=== PATIENT | male | born 1975 | race Caucasian/White ===

== ENCOUNTER 2021-02-14 18:07 | Emergency (ER) | payer SELFPAY ==
[2021-02-14 18:34] VITALS: BP 141/96; PULSE 81; RESP 14; TEMP 36.8; O2SAT 100
--- NOTE | 2021-02-14 18:34 | ED.URI ---
HPI - URI/Sore Throat General Chief Complaint: Upper Respiratory Infection Stated Complaint: asthma Time Seen by Provider: 02/14/21 18:34 Source: patient and RN notes reviewed History of Present Illness HPI Narrative: Patient is a 45-year-old male who presents the urgent care with complaints of mild asthma exacerbation. Patient currently denies of any shortness of breath and states that he has been holding back his cough . Patient states that he currently does not have a doctor and needs a refill of his albuterol inhaler. States that the symptoms are consistent with his chronic asthma . Patient does not use any daily antihistamines or other medications for his asthma. No other acute complaints. No acute distress noted. Patient aware of the plan of care. Some parts of this dictation were generated by voice recognition software and may contain typographical and/or grammatical inaccuracies. Related Data Home Medications Medication Instructions Recorded Confirmed albuterol sulfate 2 puff INHALATION QID PRN 02/14/21 02/14/21 Allergies Allergy/AdvReac Type Severity Reaction Status Date / Time No Known Allergies Allergy Unknown Verified 02/14/21 18:45 Review of Systems Review of Systems: Narrative: CONSTITUTIONAL: Denies fever, chills, or sweats. EYES: Denies visual changes, redness, or discharge. ENT: Denies rhinorrhea, congestion, sore throat, or otalgia. CARDIOVASCULAR: Denies chest pain, palpitations, or edema. RESPIRATORY: Reports of holding back a cough and mild intermittent asthma issues GASTROINTESTINAL: Denies abdominal pain, nausea, vomiting, or diarrhea. GENITOURINARY: Denies dysuria or hematuria. SKIN: Denies rash or itching. MUSCULOSKELETAL: Denies back pain, joint pain, or myalgia. NEUROLOGIC: Denies headache, numbness, or weakness. All other systems reviewed are negative, except as documented in HPI. PMFSH Comments At the time of my signature, I reviewed and agree with the nursing past medical, surgical, social, and family history. There is no relevant family history pertinent to the patient complaint. Exam Narrative: Exam Narrative: GENERAL: This is a well-nourished, well-developed patient, in no apparent distress. HEAD: normocephalic, atraumatic. EYES: PERRL. Sclera clear/white. Vision is grossly intact. EARS: External ears normalt. NOSE: External nose normal with no obvious nasal discharge, nares without redness, no rhinorrhea. THROAT: Mucous membranes moist NECK: Neck supple CARDIOVASCULAR: Regular rate and rhythm without murmurs, gallops, or rubs. RESPIRATORY: Clear to auscultation. Breath sounds equal bilaterally. No wheezes, rales, or rhonchi. SKIN: warm, intact with no suspicious lesions or rash, good texture and turgor. NEURO: awake, alert, and oriented to person, place and time. There were no obvious focal neurologic abnormalities. EXTREMITIES: No clubbing, cyanosis, or edema. Course Vital Signs Vital signs: Vital Signs Temperature 98.3 F 02/14/21 18:34 Pulse Rate 81 02/14/21 18:34 Respiratory Rate 14 02/14/21 18:34 Blood Pressure 141/96 H 02/14/21 18:34 Pulse Oximetry 100 02/14/21 18:34 Temperature 98.3 F 02/14/21 18:34 Pulse Rate 81 02/14/21 18:34 Respiratory Rate 14 02/14/21 18:34 Blood Pressure 141/96 H 02/14/21 18:34 Pulse Oximetry 100 02/14/21 18:34 Reviewed-patient is informed that they may have pre-hypertension or hypertension based on a blood pressure reading in the department. I recommend the patient call the primary care provider listed on their discharge instructions or a physician of their choice this week to arrange follow-up for further evaluation of possible pre-hypertension or hypertension. MDM - URI/Sore Throat MDM Narrative Medical decision making narrative: Advised the patient to use the inhaler as needed. Use the daily antihistamine as prescribed. It is important that you obtain a primary doctor and insurance in order to obta
== END 2021-02-14 19:00 | disposition home or self-care (01) ==
PROVIDERS: Emergency Provider Nurse Practitioner Family
DX: J45.901 Unspecified asthma with (acute) exacerbation (principal)
CPT/HCPCS: 99203; G0463

== ENCOUNTER 2021-09-28 16:58 | Emergency (ER) | payer SELFPAY ==
[2021-09-28 17:07] VITALS: BP 138/95; PULSE 82; RESP 16; TEMP 36.9; O2SAT 98
--- NOTE | 2021-09-28 17:33 | ED.GENADULT ---
HPI - General Adult General Chief complaint: Unspecified Stated complaint: Asthma Time Seen by Provider: 09/28/21 17:04 Source: patient Mode of arrival: ambulatory Limitations: no limitations History of Present Illness HPI narrative: 46 year old male presents to Urgent Care requesting refill on his Albuterol inhaler. Pt denies cough, SOB, wheezing, fever, body aches, chills, nausea, vomiting or diarrhea. Pt does not have a PCP Associated symptoms: denies other symptoms Treatments prior to arrival: none Related Data Allergies Allergy/AdvReac Type Severity Reaction Status Date / Time No Known Allergies Allergy Verified 09/28/21 17:42 Review of Systems Constitutional: Constitutional: Denies anorexia, Denies body ache(s), Denies chills, Denies fatigue and Denies fever(s) Cardiovascular: Cardiovascular: Denies chest pain, Denies syncope, Denies irregular heart rhythm and Denies leg edema Respiratory: Respiratory: Denies cough and Denies wheezing Gastrointestinal: Gastrointestinal: Denies diarrhea, Denies nausea and Denies vomiting Neurologic: Denies headache(s) [facility] Past Medical History Medical History (Updated 09/28/21 @ 17:42 by Maria R Herndon APRN) Asthma Comments At time of signature, I agree with nursing past medical, surgical, social and family history. There is no relevant family history pertinent to the presenting complaint. Exam Const: General: cooperative, healthy appearing, comfortable, alert and awake HENMT: Head: normal to inspection Neck: Neck: normal visual inspection Resp: Effort & Inspection: normal respiratory effort, able to speak in complete sentences, no audible wheezes, no cough and respiratory effort not decreased Auscultation: clear to auscultation bilaterally Cardio: Jugular venous distension: no JVD Palpation: normal PMI Rate: regular rate Rhythm: regular rhythm Skin: General skin exam: normal color and no rashes or lesions noted Neuro: General: oriented to person and oriented to place Course Course Level of Care: Express Care Visit Vital Signs Vital signs: Vital Signs Temperature 36.9 C 09/28/21 17:07 Pulse Rate 82 09/28/21 17:07 Respiratory Rate 16 09/28/21 17:07 Blood Pressure 138/95 H 09/28/21 17:07 Pulse Oximetry 98 09/28/21 17:07 Temperature 36.9 C 09/28/21 17:07 Pulse Rate 82 09/28/21 17:07 Respiratory Rate 16 09/28/21 17:07 Blood Pressure 138/95 H 09/28/21 17:07 Pulse Oximetry 98 09/28/21 17:07 Medical Decision Making MDM Narrative Medical decision making narrative: Inform patient he will need to establish care with a local primary care provider. Inhaler refilled X 1 month Differential Diagnosis Differential Diagnosis: ASthma, viral illness Vital Signs Vital Signs: Vital Signs Temperature 36.9 C 09/28/21 17:07 Pulse Rate 82 09/28/21 17:07 Respiratory Rate 16 09/28/21 17:07 Blood Pressure 138/95 H 09/28/21 17:07 Pulse Oximetry 98 09/28/21 17:07 Temperature 36.9 C 09/28/21 17:07 Pulse Rate 82 09/28/21 17:07 Respiratory Rate 16 09/28/21 17:07 Blood Pressure 138/95 H 09/28/21 17:07 Pulse Oximetry 98 09/28/21 17:07 Critical Care Time Critical Care Time Critical Care Time: No Discharge Plan Discharge Clinical Impression: Encounter for medication refill Patient Disposition: Home, Self-Care Condition: Stable Additional Instructions: Establish care with local primary care provider for further refills Patient Language: [place] Prescriptions: New albuterol sulfate 90 mcg/actuation HFA aerosol inhaler 1 inh inhalation QID PRN (Reason: shortness of breath or wheezing) Qty: 6.7 RF: 0 Follow-up/Referrals: PHYSICIAN,CARE TRANSITION MANAGER [Primary Care Provider] - Time of Disposition: 17:43
--- NOTE | 2021-09-28 19:15 | ED.GENADULT ---
HPI - General Adult General Chief complaint: Unspecified Stated complaint: Asthma Time Seen by Provider: 09/28/21 17:04 Source: patient Mode of arrival: ambulatory Limitations: no limitations History of Present Illness Associated symptoms: denies other symptoms Treatments prior to arrival: none Related Data Allergies Allergy/AdvReac Type Severity Reaction Status Date / Time No Known Allergies Allergy Verified 09/28/21 17:42 [facility] Past Medical History Medical History (Updated 09/28/21 @ 17:42 by Maria R Herndon, HAND STONER) Asthma Course Course Level of Care: Express Care Visit Vital Signs Vital signs: Vital Signs Temperature 36.9 C 09/28/21 17:07 Pulse Rate 82 09/28/21 17:07 Respiratory Rate 16 09/28/21 17:07 Blood Pressure 138/95 H 09/28/21 17:07 Pulse Oximetry 98 09/28/21 17:07 Temperature 36.9 C 09/28/21 17:07 Pulse Rate 82 09/28/21 17:07 Respiratory Rate 16 09/28/21 17:07 Blood Pressure 138/95 H 09/28/21 17:07 Pulse Oximetry 98 09/28/21 17:07 Medical Decision Making Vital Signs Vital Signs: Vital Signs Temperature 36.9 C 09/28/21 17:07 Pulse Rate 82 09/28/21 17:07 Respiratory Rate 16 09/28/21 17:07 Blood Pressure 138/95 H 09/28/21 17:07 Pulse Oximetry 98 09/28/21 17:07 Temperature 36.9 C 09/28/21 17:07 Pulse Rate 82 09/28/21 17:07 Respiratory Rate 16 09/28/21 17:07 Blood Pressure 138/95 H 09/28/21 17:07 Pulse Oximetry 98 09/28/21 17:07 Discharge Plan Discharge Clinical Impression: Encounter for medication refill Patient Disposition: Home, Self-Care Condition: Stable Additional Instructions: Establish care with local primary care provider for further refills Patient Language: Nepali Prescriptions: New albuterol sulfate 90 mcg/actuation HFA aerosol inhaler 1 inh inhalation QID PRN (Reason: shortness of breath or wheezing) Qty: 6.7 RF: 0 Follow-up/Referrals: PHYSICIAN,MYSQL DATABASE ADMINISTRATOR [Primary Care Provider] - Time of Disposition: 17:43
== END 2021-09-28 17:45 | disposition home or self-care (01) ==
PROVIDERS: Emergency Provider Nurse Practitioner Family
DX: J45.909 Unspecified asthma, uncomplicated (principal)
CPT/HCPCS: 99211; G0463

== ENCOUNTER 2021-10-27 17:36 | Emergency (ER) | payer SELFPAY ==
--- NOTE | 2021-10-27 17:41 | ED.GENADULT ---
HPI - General Adult General Chief complaint: Unspecified Stated complaint: ASthma inhaler refill Time Seen by Provider: 10/27/21 17:41 Source: patient and RN notes reviewed History of Present Illness HPI narrative: Patient is a 46-year-old male who presents the urgent care requesting albuterol inhaler refill. Patient was seen here a month ago for the exact same situation and has not yet to follow-up with a primary care doctor. Patient states that he is self-pay. States that he is currently not having any shortness of breath, chest pain or audible wheezing. States he is been out of his inhaler for the last 2 days. Denies of any other use of medications- prescription or [id number]. No other acute complaints. No acute distress noted. Patient read the plan of care. Some parts of this dictation were generated by voice recognition software and may contain typographical and/or grammatical inaccuracies. Related Data Allergies Allergy/AdvReac Type Severity Reaction Status Date / Time No Known Allergies Allergy Verified 10/27/21 17:42 Review of Systems Review of Systems: CONSTITUTIONAL: Denies fever, chills, or sweats. EYES: Denies visual changes, redness, or discharge. ENT: Denies rhinorrhea, congestion, sore throat, or otalgia. CARDIOVASCULAR: Denies chest pain, palpitations, or edema. RESPIRATORY: Denies cough or dyspnea. GASTROINTESTINAL: Denies abdominal pain, nausea, vomiting, or diarrhea. GENITOURINARY: Denies dysuria or hematuria. SKIN: Denies rash or itching. MUSCULOSKELETAL: Denies back pain, joint pain, or myalgia. NEUROLOGIC: Denies headache, numbness, or weakness. All other systems reviewed are negative, except as documented in HPI. [facility] Past Medical History Medical History (Updated 10/27/21 @ 17:49 by ILIA Marin) Asthma Comments At the time of my signature, I reviewed and agree with the nursing past medical, surgical, social, and family history. There is no relevant family history pertinent to the patient complaint. Exam Narrative: GENERAL: This is a well-nourished, well-developed patient, in no apparent distress. HEAD: normocephalic, atraumatic. EYES: PERRL. Sclera clear/white. Vision is grossly intact. EARS: External ears normal NOSE: External nose normal with no obvious nasal discharge, nares without redness, no rhinorrhea. THROAT: Mucous membranes moist NECK: Neck supple CARDIOVASCULAR: Regular rate and rhythm without murmurs, gallops, or rubs. RESPIRATORY: Inspiratory wheezes throughout with slight crackles SKIN: warm, intact with no suspicious lesions or rash, good texture and turgor. NEURO: awake, alert, and oriented to person, place and time. There were no obvious focal neurologic abnormalities. EXTREMITIES: No clubbing, cyanosis, or edema. Course Course Level of Care: Express Care Visit Vital Signs Vital signs: Vital Signs Temperature 98.8 F 10/27/21 17:47 Pulse Rate 93 10/27/21 17:47 Respiratory Rate 18 10/27/21 17:47 Blood Pressure 155/99 H 10/27/21 17:47 Pulse Oximetry 98 10/27/21 17:47 Temperature 98.8 F 10/27/21 17:47 Pulse Rate 93 10/27/21 17:47 Respiratory Rate 18 10/27/21 17:47 Blood Pressure 155/99 H 10/27/21 17:47 Pulse Oximetry 98 10/27/21 17:47 Reviewed-patient is informed that they may have pre-hypertension or hypertension based on a blood pressure reading in the department. I recommend the patient call the primary care provider listed on their discharge instructions or a physician of their choice this week to arrange follow-up for further evaluation of possible pre-hypertension or hypertension. Medical Decision Making MDM Narrative Medical decision making narrative: Advised the patient to follow-up with the referred physicians that we will see you as a self-pay patient. It is important to follow-up considering the facility is not responsible for chronic refills of your medication. Follow-up as directed within the next 2 to 3
[2021-10-27 17:45] VITALS: BP 155/99; PULSE 93; RESP 18; TEMP 37.1; O2SAT 98
== END 2021-10-27 17:56 | disposition home or self-care (01) ==
PROVIDERS: Emergency Provider Nurse Practitioner Family
DX: J45.909 Unspecified asthma, uncomplicated (principal)
CPT/HCPCS: 99211; G0463

== ENCOUNTER 2021-11-26 19:16 | Emergency (ER) | payer SELFPAY ==
[2021-11-26 19:24] VITALS: BP 153/110; PULSE 80; RESP 14; TEMP 37; O2SAT 100
--- NOTE | 2021-11-26 19:36 | ED.GENADULT ---
HPI - General Adult General Chief complaint: Upper Respiratory Infection Stated complaint: Asthma Time Seen by Provider: 11/26/21 19:36 Source: patient Mode of arrival: ambulatory Limitations: no limitations History of Present Illness HPI narrative: 46-year-old male with history of asthma presents for albuterol inhaler refill. He reports that he has no health insurance, no primary care physician. Patient was seen here 1 month ago and was given an albuterol inhaler. Patient states that he is always use his albuterol in about 1 month, has never seen a pe manager. All systems reviewed and negative except as noted above. Related Data Allergies Allergy/AdvReac Type Severity Reaction Status Date / Time No Known Allergies Allergy Verified 11/26/21 19:31 Review of Systems Review of Systems: CONSTITUTIONAL: Denies fever, chills, or sweats. EYES: Denies visual changes, redness, or discharge. ENT: Denies rhinorrhea, congestion, sore throat, or otalgia. CARDIOVASCULAR: Denies chest pain, palpitations, or edema. RESPIRATORY: Denies cough or dyspnea. GASTROINTESTINAL: Denies abdominal pain, nausea, vomiting, or diarrhea. GENITOURINARY: Denies dysuria or hematuria. SKIN: Denies rash or itching. MUSCULOSKELETAL: Denies back pain, joint pain, or myalgia. NEUROLOGIC: Denies headache, numbness, or weakness. PSYCHIATRIC: Denies anxiety or depression. All other systems reviewed are negative, except as documented in HPI. [facility] Past Medical History Medical History (Updated 11/26/21 @ 19:45 by Josy Bahena NP) Asthma Comments At time of signature, agree with nursing past medical, surgical, social and family history. There is no relevant family history pertinent to the presenting complaint. Exam Narrative: GENERAL: This is a well-nourished, well-developed patient, in no apparent distress. HEAD: normocephalic, atraumatic. EYES: PERRL. Sclera clear/white. Vision is grossly intact. EARS: External ears normal, auditory canals clear and without drainage, TMs normal without perforation. Hearing grossly intact. NOSE: External nose normal with no obvious nasal discharge, nares without redness, no rhinorrhea. THROAT: Mucous membranes moist, posterior pharynx clear. NECK: Neck supple, non-tender without lymphadenopathy, masses or thyromegaly. CARDIOVASCULAR: Regular rate and rhythm without murmurs, gallops, or rubs. RESPIRATORY: Clear to auscultation. Breath sounds equal bilaterally. No wheezes, rales, or rhonchi. GASTROINTESTINAL: Abdomen soft, non-tender, nondistended. Bowel sounds are active. No hepato-splenomegaly, or palpable masses. No guarding. SKIN: warm, Dry, intact with no suspicious lesions or rash, good texture and turgor. NEURO: awake, alert, and oriented to person, place and time. There were no obvious focal neurologic abnormalities. EXTREMITIES: No joint tenderness, effusion, or edema noted. No calf tenderness. Negative Homans sign bilaterally. BACK: Nontender without deformity. No CVA tenderness. Course Course Level of Care: Express Care Visit Vital Signs Vital signs: Vital Signs Temperature 37.0 C 11/26/21 19:24 Pulse Rate 80 11/26/21 19:24 Respiratory Rate 14 11/26/21 19:24 Blood Pressure 153/110 H 11/26/21 19:24 Pulse Oximetry 100 11/26/21 19:24 Temperature 37.0 C 11/26/21 19:24 Pulse Rate 80 11/26/21 19:24 Respiratory Rate 14 11/26/21 19:24 Blood Pressure 153/110 H 11/26/21 19:24 Pulse Oximetry 100 11/26/21 19:24 Reviewed Medical Decision Making MDM Narrative Medical decision making narrative: Patient here for albuterol refill. Has been getting an albuterol refill about once a month. Recommend he follow-up with pe manager or primary care physician to further discuss his asthma, possible maintenance inhaler prescribed. He has no health insurance at this time. He is in no distress, denies symptoms. Patient is aware of diagnosis, understands and agrees to treatment plan.
== END 2021-11-26 19:49 | disposition home or self-care (01) ==
PROVIDERS: Emergency Provider Nurse Practitioner Family
DX: J45.20 Mild intermittent asthma, uncomplicated (principal)
CPT/HCPCS: 99213; G0463

== ENCOUNTER 2021-12-27 17:52 | Emergency (ER) | payer SELFPAY ==
[2021-12-27 17:57] VITALS: BP 149/103; PULSE 75; RESP 16; TEMP 37; O2SAT 100
--- NOTE | 2021-12-27 18:22 | ED.GENADULT ---
HPI - General Adult General Chief complaint: Unspecified Stated complaint: Asthma inhaler refill Time Seen by Provider: 12/27/21 18:23 Mode of arrival: ambulatory Limitations: no limitations History of Present Illness HPI narrative: 46-year-old male presents with concern for medication refill. He reports he is out of his albuterol inhaler. He reports he does not have medical insurance and does not have a primary care provider at this time. Reports he is in the process of working on getting a new state ID so he can then get Medicaid and find a primary care doctor. He denies any current short of breath. Reports he goes through his albuterol inhalers once monthly approximately. He reports his symptoms are worse in the morning. MD complaint: Medication refill Related Data Allergies Allergy/AdvReac Type Severity Reaction Status Date / Time No Known Allergies Allergy Verified 12/27/21 18:11 Review of Systems Review of Systems: CONSTITUTIONAL: Denies malaise, chills, sweats, or fever. ENT: Denies rhinorrhea, congestion, sinus pain, otalgia or sore throat. CARDIOVASCULAR: Denies chest pain, palpitations, or edema. RESPIRATORY: Denies current cough or dyspnea. All systems reviewed & are unremarkable except as noted in HPI and below PMFSH Past Medical History Medical History (Updated 12/27/21 @ 18:29 by Nicole Baum NP) Asthma Comments At time of signature, agree with nursing past medical, surgical, social and family history. There is no relevant family history pertinent to the presenting complaint Exam Narrative: GENERAL: Well-appearing, well-nourished, and in no acute distress. HEAD: Normocephalic, atraumatic. EYES: PERRLA, sclera clear ENT: Mucous membranes moist. NECK: Supple. CHEST: No respiratory distress. Clear to auscultation. No bony deformities, no asymmetry. Speaks in full sentences. HEART: Regular rate and rhythm. No murmur heard. SKIN: Warm, dry, no visible rash. NEURO: Alert and oriented x3. PSYCH: Normal mood and affect Course Course Emergency Course: Patient given information for [facility] and encouraged to seek a primary care provider for evaluation of his breathing problems. Patient advised on dangers of frequent use of albuterol and need for evaluation of his asthma and an asthma treatment plan. Patient is aware of, understands and agrees to treatment plan. Anticipatory guidance given. Patient agrees to follow-up as directed and is aware of reasons to seek care at the emergency department. Portions of this record may have been created with voice recognition software Level of Care: Express Care Visit Vital Signs Vital signs: Vital Signs Temperature 98.6 F 12/27/21 17:57 Pulse Rate 75 12/27/21 17:57 Respiratory Rate 16 12/27/21 17:57 Blood Pressure 149/103 H 12/27/21 17:57 Pulse Oximetry 100 12/27/21 17:57 Temperature 98.6 F 12/27/21 17:57 Pulse Rate 75 12/27/21 17:57 Respiratory Rate 16 12/27/21 17:57 Blood Pressure 149/103 H 12/27/21 17:57 Pulse Oximetry 100 12/27/21 17:57 Reviewed. Medical Decision Making MDM Narrative Medical decision making narrative: Exam findings and imaging show no acute concerns or changes; patient is non-toxic appearing and is in no distress. Patient is appropriate for outpatient treatment and follow-up. Vital Signs Vital Signs: Vital Signs Temperature 98.6 F 12/27/21 17:57 Pulse Rate 75 12/27/21 17:57 Respiratory Rate 16 12/27/21 17:57 Blood Pressure 149/103 H 12/27/21 17:57 Pulse Oximetry 100 12/27/21 17:57 Temperature 98.6 F 12/27/21 17:57 Pulse Rate 75 12/27/21 17:57 Respiratory Rate 16 12/27/21 17:57 Blood Pressure 149/103 H 12/27/21 17:57 Pulse Oximetry 100 12/27/21 17:57 Critical Care Time Critical Care Time Critical Care Time: No Discharge Plan Discharge Clinical Impression: Medication refill Patient Disposition: Home, Self-Care
== END 2021-12-27 18:35 | disposition home or self-care (01) ==
PROVIDERS: Emergency Provider Nurse Practitioner
DX: J45.909 Unspecified asthma, uncomplicated (principal)
CPT/HCPCS: 99211; G0463

== ENCOUNTER 2022-02-13 19:07 | Emergency (ER) | payer SELFPAY ==
[2022-02-13 19:15] VITALS: BP 153/100; PULSE 82; RESP 20; TEMP 37.3; O2SAT 100
--- NOTE | 2022-02-13 19:53 | ED.GENADULT ---
HPI - General Adult General Chief complaint: Unspecified Stated complaint: Shortness of Breath Time Seen by Provider: 02/13/22 20:00 Source: patient, RN notes reviewed and old records reviewed Mode of arrival: ambulatory Limitations: no limitations History of Present Illness HPI narrative: 46 year old male who presents to [facility] care with complaints of asthma history and needing refill of his inhaler. Patient reports that he has no PCP or insurance.Patient reports that he does smoke cigarettes daily and he does admit to drinking alcohol daily. Patient states that he lives in a camper and it is parked at family members. He reports that he usually uses his inhaler twice daily in morning and night and sometimes he needs to use it if he wakes up during the night. Patient denies any fevers chills or sweats or any cold symptoms at present time. MD complaint: needs refill of inhaler Related Data Allergies Allergy/AdvReac Type Severity Reaction Status Date / Time No Known Allergies Allergy Verified 02/13/22 19:11 Review of Systems Review of Systems: CONSTITUTIONAL: Denies fever, chills, or sweats. EYES: Denies visual changes, redness, or discharge. ENT: Denies rhinorrhea, congestion, sore throat, or otalgia. CARDIOVASCULAR: Denies chest pain, palpitations, or edema. RESPIRATORY: Positive for cough some dyspnea at times which is relieved with inhaler. GASTROINTESTINAL: Denies abdominal pain, nausea, vomiting, or diarrhea. GENITOURINARY: Denies dysuria or hematuria. SKIN: Denies rash or itching. MUSCULOSKELETAL: Denies back pain, joint pain, or myalgia. NEUROLOGIC: Denies headache, numbness, or weakness. PSYCHIATRIC: Denies anxiety or depression. [facility] Past Medical History Medical History (Updated 02/14/22 @ 00:00 by Polo Tubbs) Asthma Social History Social History (Updated 02/13/22 @ 20:33 by Mana Cummins NP) Smoking status: Current every day smoker Tobacco type: cigarettes Alcohol intake: current Alcohol use details: daily Substance use: unknown Additional living arrangements comments: lives in a camper parked at family member Occupation/Education: unemployed Gender identity (if verbalized by the patient): Male Comments At time of signature, agree with nursing past medical, surgical, social and family history. There is no relevant family history pertinent to the presenting complaint Exam Narrative: GENERAL: Well-appearing, fair-nourished, disheveled appearance and in no acute distress. HEAD: Normocephalic, atraumatic. EYES: PERRLA and EOMI. ENT: Nares clear, no rhinorrhea or epistaxis. Mucous membranes moist.TM's normal with good light reflex, throat pink with no lesions or exudates. NECK: Supple.no lymphadenopathy CHEST: Decreased breath sound to auscultation. No respiratory distress.SAO2 100% no tachypnea occasional cough noted HEART: Regular rate and rhythm. No murmur heard. Normal peripheral pulses. ABDOMEN: Soft, nontender, nondistended, normal active bowel sounds. EXTREMITIES: Normal range of motion. No edema. SKIN: Warm, dry, no rash. NEURO: No focal deficits. Alert and oriented x3. Course Course Level of Care: Express Care Visit Vital Signs Vital signs: Vital Signs Temperature 37.3 C 02/13/22 19:15 Pulse Rate 82 02/13/22 19:15 Respiratory Rate 20 02/13/22 19:15 Blood Pressure 153/100 H 02/13/22 19:15 Pulse Oximetry 100 02/13/22 19:15 Oxygen Delivery Room Air 02/13/22 19:15 Temperature 37.3 C 02/13/22 19:15 Pulse Rate 82 02/13/22 19:15 Respiratory Rate 20 02/13/22 19:15 Blood Pressure 153/100 H 02/13/22 19:15 Pulse Oximetry 100 02/13/22 19:15 Oxygen Delivery Room Air 02/13/22 19:15 Medical Decision Making Differential Diagnosis Differential Diagnosis: medication refill, chronic health condition, asthma, No PCP Medical Records Medical records reviewed: Yes I reviewed the external patient's medical records. Vital Signs Vital Si
== END 2022-02-13 20:24 | disposition home or self-care (01) ==
PROVIDERS: Emergency Provider Registered Nurse
DX: J45.909 Unspecified asthma, uncomplicated (principal); F17.210 Nicotine dependence, cigarettes, uncomplicated
CPT/HCPCS: 99211; G0463

== ENCOUNTER 2022-03-08 17:58 | Emergency (ER) | payer SELFPAY ==
[2022-03-08 18:06] VITALS: BP 140/92; PULSE 81; RESP 16; TEMP 37.3; O2SAT 98
--- NOTE | 2022-03-08 18:21 | ED.GENADULT ---
HPI - General Adult General Chief complaint: Unspecified Stated complaint: need meds Time Seen by Provider: 03/08/22 18:21 Source: patient Mode of arrival: ambulatory Limitations: no limitations History of Present Illness HPI narrative: 46 yo M with hx of asthma since he was a child presents for refill for albuterol inhaler. he has 16 puffs left. States tell them i want the blue one and not the red one. the blue one works better . Pt uses albuterol everyday. Has been to [facility] 6 to 7 times for a refill since september. has been told this is not the appropriate treatment for his asthma. has been given follow up with a PCP. States maybe i like the way i am treating my asthma and i don't want to make any changes . pt is in no resp distress. All systems reviewed and negative except as noted above. Related Data Allergies Allergy/AdvReac Type Severity Reaction Status Date / Time No Known Allergies Allergy Verified 03/08/22 18:02 Review of Systems Review of Systems: CONSTITUTIONAL: Denies fever, chills, or sweats. EYES: Denies visual changes, redness, or discharge. ENT: Denies rhinorrhea, congestion, sore throat, or otalgia. CARDIOVASCULAR: Denies chest pain, palpitations, or edema. RESPIRATORY: Denies cough or dyspnea. GASTROINTESTINAL: Denies abdominal pain, nausea, vomiting, or diarrhea. GENITOURINARY: Denies dysuria or hematuria. SKIN: Denies rash or itching. MUSCULOSKELETAL: Denies back pain, joint pain, or myalgia. NEUROLOGIC: Denies headache, numbness, or weakness. PSYCHIATRIC: Denies anxiety or depression. All other systems reviewed are negative, except as documented in HPI. [facility] Past Medical History Medical History (Updated 03/08/22 @ 18:28 by Josy Bahena NP) Asthma Social History Social History (Updated 02/13/22 @ 20:33 by Mana Cummins NP) Smoking status: Current every day smoker Tobacco type: cigarettes Alcohol intake: current Alcohol use details: daily Substance use: unknown Additional living arrangements comments: lives in a camper parked at family member Gender identity (if verbalized by the patient): Male Comments At time of signature, agree with nursing past medical, surgical, social and family history. There is no relevant family history pertinent to the presenting complaint. Exam Narrative: GENERAL: This is a well-nourished, well-developed patient, in no apparent distress. HEAD: normocephalic, atraumatic. EYES: PERRL. Sclera clear/white. Vision is grossly intact. EARS: External ears normal NOSE: External nose normal NECK: Neck supple, non-tender without lymphadenopathy, masses or thyromegaly. CARDIOVASCULAR: Regular rate and rhythm without murmurs, gallops, or rubs. RESPIRATORY: Clear to auscultation. Breath sounds equal bilaterally. No wheezes, rales, or rhonchi. SKIN: warm, Dry, intact with no suspicious lesions or rash, good texture and turgor. NEURO: awake, alert, and oriented to person, place and time. There were no obvious focal neurologic abnormalities. EXTREMITIES: No joint tenderness, effusion, or edema noted. Course Course Level of Care: Express Care Visit Vital Signs Vital signs: Vital Signs Temperature 37.3 C 03/08/22 18:06 Pulse Rate 81 03/08/22 18:06 Respiratory Rate 16 03/08/22 18:06 Blood Pressure 140/92 H 03/08/22 18:06 Pulse Oximetry 98 03/08/22 18:06 Oxygen Delivery Room Air 03/08/22 18:06 Temperature 37.3 C 03/08/22 18:06 Pulse Rate 81 03/08/22 18:06 Respiratory Rate 16 03/08/22 18:06 Blood Pressure 140/92 H 03/08/22 18:06 Pulse Oximetry 98 03/08/22 18:06 Oxygen Delivery Room Air 03/08/22 18:06 Reviewed Medical Decision Making MDM Narrative Medical decision making narrative: pt educated again that albuterol inhaler should be used only two days a wk. instructed to follow up with PCP to be prescribed appropirate inhalers to treat asthma. he is rolling his eyes and does not plan to foll
== END 2022-03-08 18:33 | disposition home or self-care (01) ==
PROVIDERS: Emergency Provider Nurse Practitioner Family
DX: J45.909 Unspecified asthma, uncomplicated (principal); F17.210 Nicotine dependence, cigarettes, uncomplicated
CPT/HCPCS: 99211; G0463

== ENCOUNTER 2022-07-10 17:45 | Emergency (ER) | payer SELFPAY ==
[2022-07-10 18:19] VITALS: BP 136/99; PULSE 82; RESP 20; TEMP 36.4; O2SAT 100
--- NOTE | 2022-07-10 19:00 | ED.ASTHMA ---
HPI - Asthma General Chief Complaint: Asthma Stated Complaint: Needs Asthma Inhaler Source: patient Mode of arrival: ambulatory Limitations: no limitations History of Present Illness HPI Narrative: Patient presents requesting a refill on his albuterol inhaler. He has a history of tobacco use, smoking 1 pack/day. He has chronic shortness of breath, cough, wheezing and the symptoms at present time are not worse than his baseline. He ran out of his inhaler last Saturday. He does not have insurance to establish care with a primary care provider. He denies any fever, chills, sore throat, nausea, vomiting, diarrhea. No additional complaints or concerns. Related Data Allergies Allergy/AdvReac Type Severity Reaction Status Date / Time No Known Allergies Allergy Verified 05/23/22 12:43 Review of Systems Review of Systems: CONSTITUTIONAL: Denies fever, chills, or sweats. EYES: Denies visual changes, redness, or discharge. ENT: Denies rhinorrhea, congestion, sore throat, or otalgia. CARDIOVASCULAR: Denies chest pain, palpitations, or edema. RESPIRATORY: Reports productive cough, shortness of breath, wheezing which are all chronic. Current symptoms not worse than baseline GASTROINTESTINAL: Denies abdominal pain, nausea, vomiting, or diarrhea. GENITOURINARY: Denies dysuria or hematuria. SKIN: Denies rash or itching. MUSCULOSKELETAL: Denies back pain, joint pain, or myalgia. NEUROLOGIC: Denies headache, numbness, dizziness, or weakness. PSYCHIATRIC: Denies anxiety or depression. [facility] Past Medical History Medical History (Updated 07/10/22 @ 19:02 by ILIA Cruz, ) Asthma Surgical History Surgical History No pertinent past surgical history Family History Family History Mother Unknown family medical history Social History Social History Smoking status: Current every day smoker Tobacco type: cigarettes Alcohol intake: current Alcohol use details: drinks 1 pint of whiskey per day Substance use: unknown Living arrangements: alone Additional living arrangements comments: lives in a camper parked at family member Gender identity (if verbalized by the patient): Male Exam Narrative: GENERAL: Well-appearing, well-nourished, and in no acute distress. Disheveled appearance HEAD: Normocephalic, atraumatic. EYES: PERRLA and EOMI. ENT: Nares clear, no rhinorrhea or epistaxis. Mucous membranes moist. Oropharynx without tonsillar hypertrophy exudate or other lesions. Bilateral TMs pearly arreaga nonbulging NECK: Supple. No adenopathy or masses. No carotid bruits or JVD CHEST: Clear to auscultation. No respiratory distress. No wheezes rales or rhonchi HEART: Regular rate and rhythm. No murmur heard. Normal peripheral pulses. ABDOMEN: Soft, nontender, nondistended, normal active bowel sounds. EXTREMITIES: Normal range of motion. No edema. SKIN: Warm, dry, no rash. NEURO: No focal deficits. Alert and oriented x3. PSYCH: Normal mood and affect. Course Course Emergency Course: This is a 46-year-old male who presented for refill on his inhaler. He has chronic respiratory symptoms and current symptoms are unchanged from baseline. Will refill albuterol. Advised to follow-up with primary care provider. Go to the ER for difficulty breathing. Patient in agreement with plan of care Level of Care: Express Care Visit Vital Signs Vital signs: Vital Signs Temperature 36.4 C 07/10/22 18:19 Pulse Rate 82 07/10/22 18:19 Respiratory Rate 20 07/10/22 18:19 Blood Pressure 136/99 H 07/10/22 18:19 Pulse Oximetry 100 07/10/22 18:19 Oxygen Delivery Room Air 07/10/22 18:19 Temperature 36.4 C 07/10/22 18:19 Pulse Rate 82 07/10/22 18:19 Respiratory Rate 20 07/10/22 18:19 Blood Pressure 136/99 H 07/10/22 18:
== END 2022-07-10 19:04 | disposition home or self-care (01) ==
PROVIDERS: Emergency Provider Nurse Practitioner
DX: J45.909 Unspecified asthma, uncomplicated (principal); Z76.0 Encounter for issue of repeat prescription; F17.210 Nicotine dependence, cigarettes, uncomplicated
CPT/HCPCS: 99211; G0463

== ENCOUNTER 2022-09-29 16:41 | Emergency (ER) | payer SELFPAY ==
[2022-09-29 16:44] VITALS: BP 161/100; PULSE 79; RESP 14; TEMP 36.5; O2SAT 100
--- NOTE | 2022-09-29 16:50 | ED.GENADULT ---
HPI - General Adult General Chief complaint: Unspecified Stated complaint: Asthma inhaler refill History of Present Illness HPI narrative: Patient presents for inhaler refill. Patient states he is down to his last 16 past. Patient is known well here to this Express Care he is here once a month for inhaler refill. Patient has given list of physicians taking patients but states he has no insurance and has not yet filed for medical card. Discussed with patient need for continuity of care and to be monitored for his asthma on a regular basis by a primary care provider. Related Data Allergies Allergy/AdvReac Type Severity Reaction Status Date / Time No Known Allergies Allergy Verified 09/29/22 16:51 Review of Systems Review of Systems: CONSTITUTIONAL: Denies fever, chills, or sweats. EYES: Denies visual changes, redness, or discharge. ENT: Denies rhinorrhea, congestion, sore throat, or otalgia. CARDIOVASCULAR: Denies chest pain, palpitations, or edema. RESPIRATORY: Denies cough or dyspnea. GASTROINTESTINAL: Denies abdominal pain, nausea, vomiting, or diarrhea. GENITOURINARY: Denies dysuria or hematuria. SKIN: Denies rash or itching. MUSCULOSKELETAL: Denies back pain, joint pain, or myalgia. NEUROLOGIC: Denies headache, numbness, or weakness. PSYCHIATRIC: Denies anxiety or depression. [facility] Past Medical History Medical History (Updated 07/11/22 @ 00:00 by Polo Tubbs) Asthma Surgical History Surgical History No pertinent past surgical history Family History Family History Mother Unknown family medical history Social History Social History Smoking status: Current every day smoker Tobacco type: cigarettes Alcohol intake: current Alcohol use details: drinks 1 pint of whiskey per day Substance use: unknown Additional living arrangements comments: lives in a camper parked at family member Gender identity (if verbalized by the patient): Male Comments At time of signature, agree with nursing past medical, surgical, social and family history. There is no relevant family history pertinent to the presenting complaint Exam Narrative: My normal exam GENERAL: Well-appearing, well-nourished, and in no acute distress. HEAD: Normocephalic, atraumatic. EYES: PERRLA and EOMI. ENT: Nares clear, no rhinorrhea or epistaxis. Mucous membranes moist. NECK: Supple. CHEST: Clear to auscultation. No respiratory distress. HEART: Regular rate and rhythm. No murmur heard. Normal peripheral pulses. ABDOMEN: Soft, nontender, nondistended, normal active bowel sounds. EXTREMITIES: Normal range of motion. No edema. SKIN: Warm, dry, no rash. NEURO: No focal deficits. Alert and oriented x3. [place] Coma Scale Eye Opening: Spontaneous 4 [place] Coma Scale Motor: Obeys Commands 6 [place] Coma Scale Verbal: Oriented 5 [place] Coma Scale Total 15 Course Course Level of Care: Express Care Visit Vital Signs Vital signs: Vital Signs Temperature 36.5 C 09/29/22 16:44 Pulse Rate 79 09/29/22 16:44 Respiratory Rate 14 09/29/22 16:44 Blood Pressure 161/100 H 09/29/22 16:44 Pulse Oximetry 100 09/29/22 16:44 Oxygen Delivery Room Air 09/29/22 16:44 Temperature 36.5 C 09/29/22 16:44 Pulse Rate 79 09/29/22 16:44 Respiratory Rate 14 09/29/22 16:44 Blood Pressure 161/100 H 09/29/22 16:44 Pulse Oximetry 100 09/29/22 16:44 Oxygen Delivery Room Air 09/29/22 16:44 Please MICH schedule a followup visit with your personal physician for further evaluation and treatment. Including recheck and discussion of your blood pressure. If your symptoms persist, change or worsen significantly before you can contact your personal physician then please, without delay, go to the emergency department for further evaluation Discussed w
== END 2022-09-29 17:01 | disposition home or self-care (01) ==
PROVIDERS: Emergency Provider Nurse Practitioner Family; PCP Emergency Medicine
DX: J45.909 Unspecified asthma, uncomplicated (principal); Z76.0 Encounter for issue of repeat prescription; F17.210 Nicotine dependence, cigarettes, uncomplicated
CPT/HCPCS: 99211; 99213; G0463

== ENCOUNTER 2022-11-02 17:56 | Emergency (ER) | payer SELFPAY ==
[2022-11-02 18:18] VITALS: BP 147/98; PULSE 77; RESP 20; TEMP 37.1; O2SAT 97
[2022-11-02 18:19] VITALS: BP 147/98; PULSE 77; RESP 20; TEMP 37.1; O2SAT 97
--- NOTE | 2022-11-02 18:51 | ED.SOB ---
HPI - SOB/Dyspnea General Chief Complaint: Shortness of Breath/Dyspnea Stated Complaint: need refill asthma inhaler Time Seen by Provider: 11/02/22 18:51 Source: patient Mode of arrival: ambulatory Limitations: no limitations History of Present Illness HPI Narrative: Patient presented requesting an albuterol inhaler refill. He endorses a history of asthma and has intermittent shortness of breath and wheezing. He currently denies chest pain, palpitations, shortness of breath, wheezing, fevers or chills. He does not have a PCP. He reports smoking at least 1 pack per day and drinks alcohol daily. Related Data Allergies Allergy/AdvReac Type Severity Reaction Status Date / Time No Known Allergies Allergy Verified 11/02/22 18:18 Review of Systems Review of Systems: CONSTITUTIONAL: Denies body aches, fever, chills, or sweats. EYES: Denies visual changes, redness, or discharge. ENT: Denies rhinorrhea, congestion, sore throat, or otalgia. CARDIOVASCULAR: Denies chest pain, palpitations, or edema. RESPIRATORY: Reports cough, sob, wheezing. SKIN: Denies rash, itching, or wounds. MUSCULOSKELETAL: Denies back pain, joint pain, or myalgia. All systems reviewed & are unremarkable except as noted in HPI and below PMFSH Past Medical History Medical History Asthma Surgical History Surgical History No pertinent past surgical history Family History Family History Mother Unknown family medical history Social History Social History Smoking status: Current every day smoker Tobacco type: cigarettes Alcohol intake: current Alcohol use details: drinks 1 pint of whiskey per day Substance use: unknown Living arrangements: alone Additional living arrangements comments: lives in a camper parked at family member Occupation/Education: unemployed Gender identity (if verbalized by the patient): Male Comments At time of signature, I have reviewed and agree with nursing past medical, surgical, social and family history unless otherwise noted. Please see nursing chart for further information. There is no relevant family history pertinent to the presenting complaint Exam Narrative: GENERAL: Appears older than stated age, chronically ill-appearing, nontoxic, in no acute distress. EYES: EOMI. No redness or drainage. Conjunctivae normal. ENT: Mucous membranes pink and moist. No rhinorrhea. TMs normal bilaterally. Throat normal. Uvula midline. CHEST: No respiratory distress. LCTAB, diminished. HEART: Regular rate and rhythm. No murmur appreciated. ABDOMEN: Soft, nontender, nondistended, normal active bowel sounds. SKIN: Warm, dry, no rash. Capillary refill normal. Normal skin turgor. NEURO: Alert and oriented x3. Gait steady. PSYCH: Normal affect. Course Course Emergency Course: Patient is aware of diagnosis, understands and agrees to treatment plan. Anticipatory guidance given. Patient agrees to follow-up as directed and is aware of reasons to seek care at the emergency department. Portions of this record may have been created with voice recognition software Level of Care: Express Care Visit Vital Signs Vital signs: Vital Signs Temperature 98.8 F 11/02/22 18:18 Pulse Rate 77 11/02/22 18:18 Respiratory Rate 20 11/02/22 18:18 Blood Pressure 147/98 H 11/02/22 18:18 Pulse Oximetry 97 11/02/22 18:18 Oxygen Delivery Room Air 11/02/22 18:18 Temperature 98.8 F 11/02/22 18:19 Pulse Rate 77 11/02/22 18:19 Respiratory Rate 20 11/02/22 18:19 Blood Pressure 147/98 H 11/02/22 18:19 Pulse Oximetry 97 11/02/22 18:19 Oxygen Delivery Room Air 11/02/22 18:19 MDM - SOB/Dyspnea MDM Narrative Medical decision making narrative: Rx inhaler refilled
== END 2022-11-02 19:00 | disposition home or self-care (01) ==
PROVIDERS: Emergency Provider Nurse Practitioner Family
DX: F17.210 Nicotine dependence, cigarettes, uncomplicated (principal); J45.909 Unspecified asthma, uncomplicated
CPT/HCPCS: 99213; G0463

== ENCOUNTER 2022-12-29 18:06 | Emergency (ER) | payer SELFPAY ==
[2022-12-29 18:17] VITALS: PULSE 77; RESP 20; TEMP 37.1; O2SAT 100
--- NOTE | 2022-12-29 18:29 | WPDEDEXPGENP ---
HPI - General Ped General Chief complaint: Asthma Stated complaint: Breathing Problem History of Present Illness HPI narrative: Patient presents requesting a refill on his albuterol inhaler. Patient reports a history of asthma and states he has 6 puffs left on his current inhaler. Patient is a pack-a-day smoker for several years and drinks alcohol on a daily basis. Patient states he does not have a primary care provider and does not wish to establish with 1 at this time. Related Data Allergies Allergy/AdvReac Type Severity Reaction Status Date / Time No Known Allergies Allergy Verified 12/29/22 18:32 Pediatric Review of Systems Review of Systems: CONSTITUTIONAL: Denies fever, chills, or sweats. EYES: Denies visual changes, redness, or discharge. ENT: Denies rhinorrhea, congestion, sore throat, or otalgia. CARDIOVASCULAR: Denies chest pain, palpitations, or edema. RESPIRATORY: Denies cough or dyspnea. GASTROINTESTINAL: Denies abdominal pain, nausea, vomiting, or diarrhea. GENITOURINARY: Denies dysuria or hematuria. SKIN: Denies rash or itching. MUSCULOSKELETAL: Denies back pain, joint pain, or myalgia. NEUROLOGIC: Denies headache, numbness, or weakness. PSYCHIATRIC: Denies anxiety or depression. PMFSH Past Medical History Medical History Asthma Surgical History Surgical History No pertinent past surgical history Family History Family History Mother Unknown family medical history Social History Social History Smoking status: Current every day smoker Tobacco type: cigarettes Alcohol intake: current Alcohol use details: drinks 1 pint of whiskey per day Substance use: unknown Living arrangements: alone Additional living arrangements comments: lives in a camper parked at family member Occupation/Education: unemployed Gender identity (if verbalized by the patient): Male Comments At time of signature, agree with nursing past medical, surgical, social and family history. There is no relevant family history pertinent to the presenting complaint Pediatric Exam Narrative: Physical exam: GENERAL: Well-appearing, well-nourished, and in no acute distress. HEAD: Normocephalic, atraumatic. EYES: PERRLA and EOMI. ENT: Nares clear, no rhinorrhea or epistaxis. Mucous membranes moist. NECK: Supple. CHEST: Clear to auscultation. No respiratory distress. HEART: Regular rate and rhythm. No murmur heard. Normal peripheral pulses. ABDOMEN: Soft, nontender, nondistended, normal active bowel sounds. EXTREMITIES: Normal range of motion. No edema. SKIN: Warm, dry, no rash. NEURO: No focal deficits. Alert and oriented x3. [place] Coma Scale Eye Opening: Spontaneous 4 [place] Coma Scale Motor: Obeys Commands 6 [place] Coma Scale Verbal: Oriented 5 [place] Coma Scale Total 15 Course Course Level of Care: Express Care Visit Vital Signs Vital signs: Vital Signs Temperature 37.1 C 12/29/22 18:17 Pulse Rate 77 12/29/22 18:17 Respiratory Rate 20 12/29/22 18:17 Pulse Oximetry 100 12/29/22 18:17 Oxygen Delivery Room Air 12/29/22 18:17 Temperature 37.1 C 12/29/22 18:17 Pulse Rate 85 12/29/22 18:34 Respiratory Rate 20 12/29/22 18:17 Blood Pressure 146/95 H 12/29/22 18:34 Pulse Oximetry 100 12/29/22 18:17 Oxygen Delivery Room Air 12/29/22 18:17 Please MICH schedule a followup visit with your personal physician for further evaluation and treatment. Including recheck and discussion of your blood pressure. If your symptoms persist, change or worsen significantly before you can contact your personal physician then please, without delay, go to the emergency department for further evaluation Medical Decision Making Vital Signs Vital Signs: Vital Signs
[2022-12-29 18:34] VITALS: BP 146/95; PULSE 85
== END 2022-12-29 18:40 | disposition home or self-care (01) ==
PROVIDERS: Emergency Provider Nurse Practitioner Family
DX: J45.909 Unspecified asthma, uncomplicated (principal); F17.200 Nicotine dependence, unspecified, uncomplicated
CPT/HCPCS: 99211; G0463

== ENCOUNTER 2023-01-22 18:25 | Emergency (ER) | payer SELFPAY ==
[2023-01-22 18:36] VITALS: BP 181/104; PULSE 103; RESP 16; TEMP 37.2; O2SAT 99
--- NOTE | 2023-01-22 18:58 | ED.GENADULT ---
HPI - General Adult General Chief complaint: Upper Respiratory Infection Stated complaint: asthma flair Source: patient Mode of arrival: ambulatory Limitations: no limitations History of Present Illness HPI narrative: Patient presents for requesting a refill on his albuterol inhaler. He smokes approximately 1 pack per day. He has chronic shortness of breath, cough, wheezing and current symptoms are not worse than those he experiences at his baseline. He has just a small amount of his inhaler left. He does not have insurance to establish care with a primary care provider. No recent sick contacts to his knowledge. No fever, chills, nausea, vomiting, diarrhea. Related Data Allergies Allergy/AdvReac Type Severity Reaction Status Date / Time No Known Allergies Allergy Verified 12/29/22 18:32 Review of Systems Review of Systems: CONSTITUTIONAL: Denies fever, chills, or sweats. EYES: Denies visual changes, redness, or discharge. ENT: Denies rhinorrhea, congestion, sore throat, or otalgia. CARDIOVASCULAR: Denies chest pain, palpitations, or edema. RESPIRATORY: Reports chronic shortness of breath and cough, not worse at present time from his baseline. GASTROINTESTINAL: Denies abdominal pain, nausea, vomiting, or diarrhea. GENITOURINARY: Denies dysuria or hematuria. SKIN: Denies rash or itching. MUSCULOSKELETAL: Denies back pain, joint pain, or myalgia. NEUROLOGIC: Denies headache, numbness, dizziness, or weakness. PSYCHIATRIC: Denies anxiety or depression. [facility] Past Medical History Medical History Asthma Surgical History Surgical History No pertinent past surgical history Family History Family History Mother Unknown family medical history Social History Social History Smoking packs per day: 1 Smoking cigarettes per day: 20.0 Smoking status: Current every day smoker Tobacco type: cigarettes Alcohol intake: current Alcohol use details: drinks 1 pint of whiskey per day Substance use: unknown Living arrangements: alone Additional living arrangements comments: lives in a camper parked at family member Occupation/Education: unemployed Gender identity (if verbalized by the patient): Male Spiritual care concerns: No Exam Narrative: GENERAL: Well-appearing, well-nourished, and in no acute distress. HEAD: Normocephalic, atraumatic. EYES: PERRLA and EOMI. ENT: Nares clear, no rhinorrhea or epistaxis. Mucous membranes moist. Oropharynx without tonsillar hypertrophy exudate or other lesions. Bilateral TMs pearly arreaga nonbulging NECK: Supple. No adenopathy or masses. No carotid bruits or JVD CHEST: Clear to auscultation. No respiratory distress. No wheezes rales or rhonchi HEART: Regular rate and rhythm. No murmur heard. Normal peripheral pulses. ABDOMEN: Soft, nontender, nondistended, normal active bowel sounds. EXTREMITIES: Normal range of motion. No edema. SKIN: Warm, dry, no rash. NEURO: No focal deficits. Alert and oriented x3. PSYCH: Normal mood and affect. Course Course Emergency Course: This is a 47-year-old male who presented requesting a refill on his albuterol inhaler. No wheezing on exam. Saturations normal. He is in no apparent distress. Advised he establish care with primary provider. Advised on smoking cessation. Go to the ER for shortness of breath or worsening symptoms. Patient in agreement with plan of care Level of Care: Express Care Visit Vital Signs Vital signs: Vital Signs Temperature 37.2 C 01/22/23 18:36 Pulse Rate 103 H 01/22/23 18:36 Respiratory Rate 16 01/22/23 18:36 Blood Pressure 181/104 H 01/22/23 18:36 Pulse Oximetry 99 01/22/23 18:36 Oxygen Delivery Room Air 01/22/23 18:36 Temper
== END 2023-01-22 19:00 | disposition home or self-care (01) ==
PROVIDERS: Emergency Provider Nurse Practitioner
DX: J45.909 Unspecified asthma, uncomplicated (principal); Z76.0 Encounter for issue of repeat prescription; F17.210 Nicotine dependence, cigarettes, uncomplicated
CPT/HCPCS: 99211; G0463

== ENCOUNTER 2023-03-06 18:31 | Emergency (ER) | payer SELFPAY ==
--- NOTE | 2023-03-06 18:36 | ED.GENADULT ---
HPI - General Adult General Chief complaint: Unspecified Stated complaint: Med Refill Time Seen by Provider: 03/06/23 18:36 Source: patient and RN notes reviewed History of Present Illness HPI narrative: Patient is a 47-year-old male who presents to Urgent Care with request for an inhaler refill. Patient has been here approximately 13 times for refill of his albuterol. Patient states that he does have a primary care doctor and has not seen 1 in some time. Patient is a current smoker. Currently denies any shortness of breath or wheezing. Patient states he has approximately 6 pasta left on his current inhaler. No other acute complaints. No acute distress noted. Patient aware of the plan of care. Some parts of this dictation were generated by voice recognition software and may contain typographical and/or grammatical inaccuracies. Related Data Allergies Allergy/AdvReac Type Severity Reaction Status Date / Time No Known Allergies Allergy Verified 12/29/22 18:32 Review of Systems Review of Systems: CONSTITUTIONAL: Denies fever, chills, or sweats. EYES: Denies visual changes, redness, or discharge. ENT: Denies rhinorrhea, congestion, sore throat, or otalgia. CARDIOVASCULAR: Denies chest pain, palpitations, or edema. RESPIRATORY: Denies cough or dyspnea. GASTROINTESTINAL: Denies abdominal pain, nausea, vomiting, or diarrhea. GENITOURINARY: Denies dysuria or hematuria. SKIN: Denies rash or itching. MUSCULOSKELETAL: Denies back pain, joint pain, or myalgia. NEUROLOGIC: Denies headache, numbness, or weakness. All other systems reviewed are negative, except as documented in HPI. [facility] Past Medical History Medical History Asthma Surgical History Surgical History No pertinent past surgical history Family History Family History Mother Unknown family medical history Social History Social History Smoking packs per day: 1 Smoking cigarettes per day: 20.0 Smoking status: Current every day smoker Tobacco type: cigarettes Alcohol intake: current Alcohol use details: drinks 1 pint of whiskey per day Substance use: unknown Living arrangements: alone Additional living arrangements comments: lives in a camper parked at family member Occupation/Education: unemployed Gender identity (if verbalized by the patient): Male Spiritual care concerns: No Comments At the time of my signature, I reviewed and agree with the nursing past medical, surgical, social, and family history. There is no relevant family history pertinent to the patient complaint. Exam Narrative: GENERAL: This is a well-nourished, well-developed patient, in no apparent distress. HEAD: normocephalic, atraumatic. EYES: PERRL. Sclera clear/white. Vision is grossly intact. EARS: External ears normal NOSE: External nose normal with no obvious nasal discharge, nares without redness, no rhinorrhea. THROAT: Mucous membranes moist NECK: Neck supple CARDIOVASCULAR: Regular rate and rhythm RESPIRATORY: Clear to auscultation. Breath sounds equal bilaterally. SKIN: warm, intact with no suspicious lesions or rash, good texture and turgor. NEURO: awake, alert, and oriented to person, place and time. There were no obvious focal neurologic abnormalities. EXTREMITIES: No clubbing, cyanosis, or edema. Course Course Level of Care: Express Care Visit Vital Signs Vital signs: Vital Signs Temperature 98.4 F 03/06/23 18:40 Pulse Rate 98 03/06/23 18:40 Respiratory Rate 20 03/06/23 18:40 Blood Pressure 135/100 H 03/06/23 18:40 Pulse Oximetry 98 03/06/23 18:40 Oxygen Delivery Room Air 03/06/23 18:40 Temperature 98.4 F 03/06/23 18:40 Pulse Rate 98 03/06/23 18:40 Respiratory Rate
[2023-03-06 18:40] VITALS: BP 135/100; PULSE 98; RESP 20; TEMP 36.9; O2SAT 98
== END 2023-03-06 18:49 | disposition home or self-care (01) ==
PROVIDERS: Emergency Provider Family Medicine
DX: Z76.0 Encounter for issue of repeat prescription (principal); J45.909 Unspecified asthma, uncomplicated; F17.210 Nicotine dependence, cigarettes, uncomplicated
CPT/HCPCS: 99211; G0463

== ENCOUNTER 2023-07-11 17:43 | Emergency (ER) | payer SELFPAY ==
--- NOTE | 2023-07-11 17:48 | ED.GENADULT ---
HPI - General Adult General Chief complaint: Unspecified Stated complaint: Asthma Problems Time Seen by Provider: 07/11/23 18:39 Source: patient, RN notes reviewed and old records reviewed Mode of arrival: ambulatory Limitations: no limitations History of Present Illness HPI narrative: 47-year-old male presents to the [facility] requesting refills of his albuterol. Has been using his family use albuterol as. Last refill from clinic was through the [facility] in February. Patient has still not established primary care provider. Patient denies any symptoms. Related Data Allergies Allergy/AdvReac Type Severity Reaction Status Date / Time No Known Allergies Allergy Verified 07/11/23 17:54 Review of Systems Review of Systems: All systems reviewed & are unremarkable except as noted in HPI and below Constitutional: Constitutional: Reports no additional constitutional complaints Eyes: Eyes: Reports no additional eye complaints ENT: Reports system reviewed and no additional complaints, except as documented Cardiovascular: Cardiovascular: Reports no additional cardiovascular complaints, Denies chest pain and Denies dyspnea Respiratory: Respiratory: Reports no additional respiratory complaints, Denies chest congestion, Denies cough and Denies dyspnea Gastrointestinal: Gastrointestinal: Reports no additional gastrointestinal complaints, Denies abdominal pain, Denies nausea and Denies vomiting Musculoskeletal: Musculoskeletal: Reports no additional musculoskeletal complaints Integumentary/Breasts: Skin/Breast: Reports system reviewed and no additional complaints, except as docu Neurologic: Reports system reviewed and no additional complaints, except as documented Psychiatric: Psychiatric: Reports no additional psychiatric complaints Allergic/Immunologic: Allergic/Immunologic: Reports no additional allergic/immunologic complaints PMF Past Medical History Medical History Asthma Surgical History Surgical History No pertinent past surgical history Family History Family History Mother Unknown family medical history Social History Social History Smoking packs per day: 1 Smoking cigarettes per day: 20.0 Smoking status: Current every day smoker Tobacco type: cigarettes Alcohol intake: current Alcohol use details: drinks 1 pint of whiskey per day Substance use: unknown Living arrangements: alone Additional living arrangements comments: lives in a camper parked at family member Occupation/Education: unemployed Gender identity (if verbalized by the patient): Male Spiritual care concerns: No Comments At the time of my signature, I reviewed and agree with the nursing past medical, surgical, social, and family history. There is no relevant family history pertinent to the patient complaint. Exam Const: General: cooperative, healthy appearing, comfortable, no acute distress, well developed, alert and well nourished Nutritional Appearance: well nourished Orientation/consciousness: patient oriented x3 Limitations: no limitations HENMT: Head: normal to inspection Ears: hearing grossly normal bilaterally and external ears normal Face/Nose/Sinus: Normal external nose present, Normal nares present, Normal nasal mucous membranes and turbinates present, normal facial exam and face symmetric Face and sinus: normal facial exam and face symmetric Eyes: General: appearance normal, both eyes and all related structures Alignment and Position: alignment normal Periorbital: periorbital findings normal Pupils: Equal, round and reactive pupils present EOM: EOMs intact bilaterally Neck: Neck: normal visual inspection, full ROM, no lymphadenopathy and no meningeal signs Chest: C
[2023-07-11 17:50] VITALS: BP 140/92; PULSE 88; RESP 18; TEMP 37.1; O2SAT 98
== END 2023-07-11 18:49 | disposition home or self-care (01) ==
PROVIDERS: Emergency Provider Nurse Practitioner
DX: I10 Essential (primary) hypertension (principal); J45.909 Unspecified asthma, uncomplicated; F17.210 Nicotine dependence, cigarettes, uncomplicated
CPT/HCPCS: 99211; G0463

== ENCOUNTER 2023-11-12 17:46 | Emergency (ER) | payer MEDICAID, SELFPAY ==
[2023-11-12 17:52] VITALS: BP 144/93; PULSE 97; RESP 20; TEMP 36.7; O2SAT 98
--- NOTE | 2023-11-12 18:30 | ED.GENADULT ---
HPI - General Adult General Chief complaint: Unspecified Stated complaint: refill on inhaler Source: patient Mode of arrival: ambulatory Limitations: no limitations History of Present Illness HPI narrative: Patient presents for a refill on his albuterol inhaler. He has an underlying history of asthma. He smokes approximately 1 pack per day. His current breathing is unchanged from his baseline. Denies any sick symptoms at the present time. He was able to secure insurance recently and is planning on establishing care with a new primary care provider. He still has a few doses left on his current inhaler but did not want around out. He has no other concerns. Related Data Allergies Allergy/AdvReac Type Severity Reaction Status Date / Time No Known Allergies Allergy Verified 07/11/23 17:54 Review of Systems Review of Systems: CONSTITUTIONAL: Denies fever, chills, or sweats. EYES: Denies visual changes, redness, or discharge. ENT: Denies rhinorrhea, congestion, sore throat, or otalgia. CARDIOVASCULAR: Denies chest pain, palpitations, or edema. RESPIRATORY: Reports chronic shortness of breath with current symptoms not worse than his baseline.. GASTROINTESTINAL: Denies abdominal pain, nausea, vomiting, or diarrhea. GENITOURINARY: Denies dysuria or hematuria. SKIN: Denies rash or itching. MUSCULOSKELETAL: Denies back pain, joint pain, or myalgia. NEUROLOGIC: Denies headache, numbness, dizziness, or weakness. PSYCHIATRIC: Denies anxiety or depression. [facility] Past Medical History Medical History Asthma Surgical History Surgical History No pertinent past surgical history Family History Family History Mother Unknown family medical history Social History Social History Smoking packs per day: 1 Smoking cigarettes per day: 20.0 Smoking status: Current every day smoker Tobacco type: cigarettes Alcohol intake: current Alcohol use details: drinks 1 pint of whiskey per day Substance use: unknown Living arrangements: alone Additional living arrangements comments: lives in a camper parked at family member Occupation/Education: unemployed Gender identity (if verbalized by the patient): Male Spiritual care concerns: No Exam Narrative: GENERAL: Disheveled appearance, skin and clothing is covered in soot, dirt and stains HEAD: Normocephalic, atraumatic. EYES: PERRLA and EOMI. ENT: Nares clear, no rhinorrhea or epistaxis. Mucous membranes moist. Oropharynx without tonsillar hypertrophy exudate or other lesions. Bilateral TMs pearly arreaga nonbulging NECK: Supple. No adenopathy or masses. No carotid bruits or JVD CHEST: Clear to auscultation. No respiratory distress. No wheezes rales or rhonchi HEART: Regular rate and rhythm. No murmur heard. Normal peripheral pulses. ABDOMEN: Soft, nontender, nondistended, normal active bowel sounds. EXTREMITIES: Normal range of motion. No edema. SKIN: Warm, dry, no rash. NEURO: No focal deficits. Alert and oriented x3. PSYCH: Normal mood and affect. Course Course Emergency Course: This is a 48-year-old male who presented for medication refill. His lungs are clear on my assessment. O2 saturations are normal. I think it is reasonable to refill his albuterol and encouraged him to establish care with a primary care provider which he states he is already planning on doing. He was advised to go to the emergency department for any significant change in his breathing, worsening shortness of breath or chest pain. Patient in agreement with plan of care. Level of Care: Express Care Visit Vital Signs Vital signs: Vital Signs Temperature 36.7 C 11/12/23 17:52 Pulse Rate 97 11/12/23 17:52 Respiratory Rate 20 11/12/23
== END 2023-11-12 18:32 | disposition home or self-care (01) ==
PROVIDERS: Emergency Provider Nurse Practitioner
DX: Z76.0 Encounter for issue of repeat prescription (principal); J45.909 Unspecified asthma, uncomplicated; F17.210 Nicotine dependence, cigarettes, uncomplicated
CPT/HCPCS: 99211; G0463